=== PATIENT | female | born 1985 | race African-American/Black ===

== ENCOUNTER 2022-05-07 09:26 | Inpatient (IN) | payer OTHER ==
[~2022-05-07] VITALS: Ht 165.1 cm; Wt 108.5 kg
[~2022-05-07 09:26] MED LIST: CALCIUM; PRENATAL
[2022-05-07 09:50] LABS: BASOPHILS % 0.3 % (0.0-2.0); EOSINOPHILS % 1.3 % (0.0-5.0); HEMATOCRIT. 37.9 % (36.0-48.0); HEMOGLOBIN. 12.2 g/dL (12.0-16.0); MEAN CORPUSCULAR HEMOGLOBIN 28.9 pg (28.0-32.0); MEAN CORPUSCULAR VOLUME 89.8 fL (81.0-99.0); MEAN PLATELET VOLUME 8.2 fl (7.4-10.4); MONOCYTES % 4.8 % (2.0-8.0); NEUTROPHILS % 41.6 % (40.0-76.0); PLATELET 280 x1000/uL (130-400); RED BLOOD CELL COUNT 4.22 mill/uL (4.2-5.4); RED CELL DISTRIBUTION WIDTH 15.2 % (11.6-14.6)
[2022-05-07 09:51] LABS: HCG SCREEN NEGATIVE
[2022-05-07 09:54] LABS: CHLORIDE 103 mEq/L (98-107)
[2022-05-07 10:01] LABS: ETHANOL BLOOD < 10 mg/dL
[2022-05-07 11:31] LABS: CLARITY URINE CLEAR (CLEAR); COLOR URINE YELLOW (YELLOW); KETONES URINE NEGATIVE (NEGATIVE); LEUKOCYTE ESTERASE URINE NEGATIVE (NEGATIVE); NITRITE URINE NEGATIVE (NEGATIVE); OCCULT BLOOD URINE NEGATIVE (NEGATIVE); PH URINE 6.5 (4.5-8.0); PROTEIN URINE 1+ (NEGATIVE); UROBILINOGEN URINE 0.2 E.U./dL (0.2-1.0)
[2022-05-07 12:00] LABS: *AMPHETAMINES SCREEN URINE NEGATIVE (NEGATIVE); *BARBITURATES SCREEN URINE NEGATIVE (NEGATIVE); *BENZODIAZEPINES SCREEN URINE NEGATIVE (NEGATIVE); CANNABINOID URINE SCREEN NEGATIVE (NEGATIVE); METHADONE URINE SCREEN NEGATIVE (NEGATIVE); OPIATES URINE SCREEN NEGATIVE (NEGATIVE); PHENCYCLIDINE URINE SCREEN NEGATIVE (NEGATIVE)
[2022-05-07 12:30] LABS: *COCAINE SCREEN URINE PRESUMTIVE POSITIVE (NEGATIVE)
[2022-05-07 23:30] VITALS: BP 149/90
[2022-05-08] VITALS (9 sets, daily range): BP systolic 108–145; BP diastolic 20–110
[2022-05-08] MEDS ORDERED: POTASSIUM CHLORIDE 20MEQ TABLET SR PO NR (09:15)
[2022-05-08] MEDS ORDERED: LEVO175T7 PO (10:07)
[2022-05-08] MEDS ORDERED: HYDROCODONE/ACETAMINOPHEN 5/325MG TABLET PO PRN (13:45)
[2022-05-08] MEDS ORDERED: MAGNESIUM/ALUMINUM HYDROXIDE/SIMETHICONE 30ML UDC PO PRN (13:45)
[2022-05-08] MEDS ORDERED: DEXTROSE 50% WATER 50ML SYRINGE IV PRN ×2 (13:45)
[2022-05-08] MEDS ORDERED: ONDANSETRON HCL 4MG/2ML INJ IV PRN (13:45)
[2022-05-08] MEDS ORDERED: ENOXAPARIN 40MG/0.4ML SYR SUBCUT SCH (13:45)
[2022-05-08] MEDS ORDERED: ACETAMINOPHEN 325MG TABLET PO PRN (13:45)
[2022-05-08] MEDS ORDERED: CLONIDINE 0.1MG TABLET PO PRN (13:45)
[2022-05-08] MEDS ORDERED: NALOXONE HCL 0.4MG/ML VIAL IV PRN (14:00)
[2022-05-08] MEDS: INSULIN LISPRO 100 UNITS/ML SUBCUT SCH ×2 (14:00→21:00)
[2022-05-08] MEDS: BLOOD SUGAR DIAGNOSTIC STRIP TEST SCH ×2 (14:00→21:00)
[2022-05-08 15:59] LABS: HEMATOCRIT 35.9 % (36.0-48.0); HEMOGLOBIN 11.7 g/dL (12.0-16.0); MEAN CORPUSCULAR HEMOGLOBIN 28.9 pg (28.0-32.0); MEAN CORPUSCULAR VOLUME 88.8 fL (81.0-99.0); PLATELET 265 x1000/uL (130-400); RED BLOOD CELL COUNT 4.04 mill/uL (4.2-5.4); RED CELL DISTRIBUTION WIDTH 14.8 % (11.6-14.6)
[2022-05-08] MEDS: LEVOTHYROXINE SODIUM 175MCG TABLET PO SCH (17:03)
[2022-05-08] MEDS: ENOXAPARIN 30MG/0.3ML SYR SUBCUT SCH (17:07)
[2022-05-08 17:19] LABS: CHLORIDE 104 mEq/L (98-107)
[2022-05-09 04:50] VITALS: BP 135/76
[2022-05-09] MEDS: BLOOD SUGAR DIAGNOSTIC STRIP TEST SCH ×2 (05:03→12:10)
[2022-05-09] MEDS: ENOXAPARIN 30MG/0.3ML SYR SUBCUT SCH (05:31)
[2022-05-09] MEDS: LEVOTHYROXINE SODIUM 175MCG TABLET PO SCH (05:31)
[2022-05-09] MEDS: INSULIN LISPRO 100 UNITS/ML SUBCUT SCH ×2 (05:37→12:40)
[2022-05-09 07:03] LABS: BASOPHILS % 0.5 % (0.0-2.0); EOSINOPHILS % 1.2 % (0.0-5.0); HEMATOCRIT. 37.8 % (36.0-48.0); HEMOGLOBIN. 12.4 g/dL (12.0-16.0); LYMPHOCYTES % 35.2 % (20.0-50.0); MEAN CORPUSCULAR HEMOGLOBIN 29.1 pg (28.0-32.0); MEAN CORPUSCULAR VOLUME 88.7 fL (81.0-99.0); MEAN PLATELET VOLUME 8.5 fl (7.4-10.4); MONOCYTES % 8.2 % (2.0-8.0); NEUTROPHILS % 54.9 % (40.0-76.0); PLATELET 261 x1000/uL (130-400); RED BLOOD CELL COUNT 4.26 mill/uL (4.2-5.4)
[2022-05-09 08:00] VITALS: BP 109/83
[2022-05-09 09:18] LABS: CHLORIDE 106 mEq/L (98-107)
[2022-05-09 09:34] LABS: HDL CHOLESTEROL 59 mg/dL (40-59); LDL CHOLESTEROL 50 mg/dL (5-100); PHOSPHORUS 2.6 mg/dL (2.5-4.9); T4 FREE 0.95 ng/dL (0.76-1.46)
[2022-05-09 12:00] VITALS: BP 132/90
[2022-05-09 12:03] VITALS: BP 132/83
[2022-05-09 12:18] VITALS: BP 132/90
== END 2022-05-09 15:10 | disposition home or self-care (01) | DRG 918 ==
LOC: ER 09:34 → 8WST 11:40 → ENRESERV 16:09
PROVIDERS: ADMIT Internal Medicine; ATTEND Internal Medicine
DX: T40.5X2A Poisoning by cocaine, intentional self-harm, initial encounter (principal); G93.40 Encephalopathy, unspecified; E89.0 Postprocedural hypothyroidism; R73.9 Hyperglycemia, unspecified; Z20.822 Contact with and (suspected) exposure to COVID-19; R73.03 Prediabetes; Y92.838 Other recreation area as the place of occurrence of the external cause
CPT/HCPCS: 36415; 70551; 71045; 80048; 80053; 80061; 80076; 80305; 80320; 81003; 82962; 83036; 83735; 84100; 84439; 84443; 84703; 85025; 85027; 87426; 93970; 99291; J1650; G0480